=== PATIENT | female | born 2000 | race Caucasian/White ===

== ENCOUNTER 2024-09-12 08:57 | Outpatient (CLI) | payer MEDICARE ==
[2024-09-12 09:07] LABS: Glucose,Whole Blood 128 mg/dL (70-110)
[2024-09-12 09:26] VITALS: BP 128/82; PULSE 106; RESP 18; TEMP 97.3
--- NOTE | 2024-10-10 20:32 | P.MSEPDOC ---
Presenting Problems - Arrival Data Date of Arrival on Unit: 09/12/24 Time of Arrival on Unit: 08:36 Mode of Transport: Ambulatory - Complaint OB-Reason for Admission/Chief Complaint: Rule Out SROM Comment: ? SROM at 0715 this morning Medical History - Information : 4 Para: 3 Term: 1 : 2 Abortions: Spontaneous or Elective: 0 Number of Living Children: 3 - Gestational Age Gestational Age by LYDIA (wks/days): 26 Weeks and 5 Days - History Complications: GDM, Prior Comment: Hx 30 week delivery Review of Systems - Review of Systems Constitutional: No problems Breast: No problems ENT: No problems Cardiovascular: No problems Respiratory: No problems Gastrointestinal: No problems Genitourinary: No problems Musculoskeletal: No problems Neurological: No problems Skin: No problems Vital Signs - Temperature Temperature: 97.3 F Temperature Source: Temporal Artery Scan - Pulse Right Sitting Brachial Pulse Rate: 106 Pulse Assessment Method: Automatic Cuff - Respirations Respiratory Rate: 18 Oxygen Delivery Method: Room Air O2 Sat by Pulse Oximetry: 98 - Blood Pressure Right Arm Sitting Blood Pressure: 128/82 Blood Pressure Mean: 97 Blood Pressure Source: Automatic Cuff Medical Screen Scoring - Assessment - Baby A Baseline FHR: 145 Heart Rate - NICHD Category: Category I (Normal) Physician Notification - Physician Notified Physician Notified Date: 09/12/24 Physician Notified Time: 09:10 Physician: Daija Haas New Order Received: Yes (dc home, pt to follow up with her own OB) Maternal Triage Index - Maternal Triage Index Presenting for scheduled procedure w/no complaint: No - Stat/Priority 1 Stat Priority 1: No - Urgent/Priority 2 Urgent Priority 2: Yes Provider Notified: Daija Haas Provider Notified Time: 09:10 Criteria Met for Priority 2: Amnisure neg, reactive heart tones Disposition - Disposition OB Disposition: Discharge to home, Written follow up instructions reviewed Discharge Date: 09/12/24 Discharge Time: 09:15 I agree with the RN Medical Screening Exam: Yes Case reviewed; plan agreed upon as documented in EMR&OBIX.: Yes Diagnosis: FALSE LABOR BEFORE 37 COMPLETED WEEKS OF GEST, THIRD TRI
== END 2024-09-12 09:15 | disposition home or self-care (01) ==
LOC: FBPOP 08:57
PROVIDERS: ATTEND Obstetrics & Gynecology
DX: O47.02 False labor before 37 completed weeks of gestation, second trimester (principal); Z3A.26 26 weeks gestation of pregnancy
CPT/HCPCS: 84112; G0463; 99213

== ENCOUNTER 2024-10-06 01:25 | Outpatient (CLI) | payer MEDICARE ==
[2024-10-06] MEDS: BETAMET ACET-BETAMETH SOD PHOS 6 MG/ML MDV IM SCH (02:36)
[2024-10-06 03:41] LABS: Appearance,Urine Cloudy (Clear); Bacteria,Urine Moderate /hpf; Bilirubin,Urine Negative (Negative); Blood,Urine Negative (Negative); Budding Yeast,Urine Few /hpf; Calcium Oxalate Crystals,Urine Rare /hpf; Color,Urine Light Yellow; Glucose,Urine (UA) Negative (Negative); Granular Casts,Urine 1 /lpf (0); Ketones,Urine Negative (Negative); Leukocyte Esterase,Urine Large (Negative); Mucus,Urine Rare /hpf; Nitrite,Urine Negative (Negative); PH, Urine 6.5 (5.0-8.0); Protein,Urine Negative (Negative); RBC,Urine 5 /hpf (0-5); Specific Gravity,Urine 1.012 (1.001-1.035); Squamous Epithelial Cell,Urine 1 /hpf (0-4); WBC,Urine 17 /hpf (0-5)
[2024-10-06 04:09] VITALS: BP 116/69; PULSE 102; RESP 16; TEMP 97.3
[2024-10-06] MEDS: LACTATED RINGERS 1,000 ML IV ONE (04:13)
[2024-10-06] MEDS: TERBUTALINE 1 MG/ML VIAL SQ STA (04:13)
--- NOTE | 2024-12-16 10:56 | P.MSEPDOC ---
Presenting Problems - Arrival Data Date of Arrival on Unit: 10/06/24 Time of Arrival on Unit: Mode of Transport: Wheelchair - Complaint OB-Reason for Admission/Chief Complaint: Possible Onset of Labor Comment: contractions starting at 0100, rates pain 10 Medical History - Information : 4 Para: 3 Term: 2 : 1 Abortions: Spontaneous or Elective: 0 Number of Living Children: 3 - Gestational Age Gestational Age by LYDIA (wks/days): 33 Weeks and 5 Days - History Complications: GDM, Prior Review of Systems - Review of Systems Constitutional: No problems Breast: No problems ENT: No problems Cardiovascular: No problems Respiratory: No problems Gastrointestinal: No problems Genitourinary: No problems Musculoskeletal: No problems Neurological: No problems Skin: No problems Vital Signs - Temperature Temperature: 97.3 F Temperature Source: Temporal Artery Scan - Pulse Pulse Oximetery Pulse Rate: 102 Pulse Assessment Method: Pulse Oximetry - Respirations Respiratory Rate: 16 Oxygen Delivery Method: Room Air O2 Sat by Pulse Oximetry: 98 - Blood Pressure Right Arm Blood Pressure: 116/69 Blood Pressure Mean: 84 Blood Pressure Source: Automatic Cuff Medical Screen Scoring - Cervical Exam Dilation (cm): 1 Station: -3 Membranes: Intact - Uterine Contractions Frequency From (mins): 1 Frequency To (mins): 2 Duration From (seconds): 30 Duration To (seconds): 40 Intensity: Mild Resting: Soft to palpation - Assessment - Baby A Baseline FHR: 140 Heart Rate - NICHD Category: Category I (Normal) NST: Reactive Physician Notification - Physician Notified Physician Notified Date: 10/06/24 Physician Notified Time: 02:09 Physician: Bere Rudd New Order Received: Yes - Notification Comment Comment: Dr. Rudd called, notified of complaints, GA, G/P, hx delivery at 28 weeks and GDM, VSS, CAT 1 FHT, Reactive NST, contraction pattern, FFN obtained, cervical exam. Orders for IV hydration, terbutaline, celestone, send FFN. Maternal Triage Index - Maternal Triage Index Presenting for scheduled procedure w/no complaint: No - Stat/Priority 1 Stat Priority 1: No - Urgent/Priority 2 Urgent Priority 2: Yes Provider Notified: Bere Rudd Provider Notified Time: 02:09 Criteria Met for Priority 2: 33 5/7 weeks, contractions every 1.5-2 minutes Disposition - Disposition OB Disposition: Discharge to home Discharge Date: 10/06/24 Discharge Time: 03:50 I agree with the RN Medical Screening Exam: Yes Case reviewed; plan agreed upon as documented in EMR&OBIX.: Yes Comments: I was told FFN negative, contractions lessened and cervix closed/thick and high Diagnosis: FALSE LABOR BEFORE 37 COMPLETED WEEKS OF GEST, SECOND TRI
== END 2024-10-06 03:50 | disposition home or self-care (01) ==
LOC: FBPOP 01:25
PROVIDERS: ATTEND Obstetrics & Gynecology
DX: Z53.9 Procedure and treatment not carried out, unspecified reason (principal)
CPT/HCPCS: 59025; 96372; 82731; 81001; 87086; G0463; J0702; 99213; 99214

== ENCOUNTER 2024-11-02 20:24 | Outpatient (CLI) | payer MEDICARE ==
[2024-11-02 22:48] VITALS: BP 136/68; PULSE 110; RESP 18; TEMP 96.1
--- NOTE | 2024-11-21 09:59 | P.MSEPDOC ---
Presenting Problems - Arrival Data Date of Arrival on Unit: 11/02/24 Time of Arrival on Unit: 20:24 Mode of Transport: Ambulatory - Complaint OB-Reason for Admission/Chief Complaint: Possible Onset of Labor Medical History - Information : 4 Para: 3 Term: 2 : 1 Abortions: Spontaneous or Elective: 0 Number of Living Children: 3 - Gestational Age Gestational Age by LYDIA (wks/days): 37 Weeks and 4 Days - History Complications: GDM, Prior Review of Systems - Review of Systems Constitutional: No problems Breast: No problems ENT: No problems Cardiovascular: No problems Respiratory: No problems Gastrointestinal: No problems Genitourinary: No problems Musculoskeletal: No problems Neurological: No problems Skin: No problems Vital Signs - Temperature Temperature: 96.1 F Temperature Source: Temporal Artery Scan - Pulse Pulse Oximetery Pulse Rate: 110 Pulse Assessment Method: Pulse Oximetry - Respirations Respiratory Rate: 18 Oxygen Delivery Method: Room Air O2 Sat by Pulse Oximetry: 96 - Blood Pressure Right Arm Blood Pressure: 136/68 Blood Pressure Mean: 90 Medical Screen Scoring - Cervical Exam Dilation (cm): 1.5 Station: -3 Membranes: Intact - Uterine Contractions Frequency From (mins): 3 Frequency To (mins): 6 - Assessment - Baby A Baseline FHR: 145 Heart Rate - NICHD Category: Category I (Normal) NST: Reactive Physician Notification - Physician Notified Physician Notified Date: 11/02/24 Physician Notified Time: 22:00 Physician: Daija Haas New Order Received: Yes (D/C home and have patient sign release of information from [facility]) - Notification Comment Comment: notified of patient being DOM from [facility] with complaint of ctx 2-3minutes apart rating them 9/10, FHR tachy on arrival now 145 cat 1 tones after cup of water, ctx 2-6 minutes when able to trace. Cervical exam 4cm on external oss, 1.5cm internal. Orders to discharge and have patient sign release of information for records. Maternal Triage Index - Prompt/Priority 3 Prompt Priority 3: Yes Criteria Met for Priority 3: Pt 37 4/7 with complaints of ctx 2-3minutes apart Disposition - Disposition OB Disposition: Discharge to home Discharge Date: 11/02/24 Discharge Time: 22:15 I agree with the RN Medical Screening Exam: Yes Case reviewed; plan agreed upon as documented in EMR&OBIX.: Yes Diagnosis: FALSE LABOR AT OR AFTER 37 COMPLETED WEEKS OF GESTATION
== END 2024-11-02 22:15 | disposition home or self-care (01) ==
LOC: FBPOP 20:24
PROVIDERS: ATTEND Obstetrics & Gynecology Obstetrics
DX: O47.1 False labor at or after 37 completed weeks of gestation (principal); Z3A.37 37 weeks gestation of pregnancy
CPT/HCPCS: 59025; G0463; 99213